=== PATIENT | female | born 1995 | race Caucasian/White ===

== ENCOUNTER 2017-12-01 07:19 | Day surgery (SDC) | payer OTHER ==
[~2017-12-01 07:19] MED LIST: ACETAMINOPHEN 1000 MG/100 ML IVPB; LIDOCAINE 2% (SDV) 5 ML INJ
[2017-12-01 08:16] LABS: ADD MAN DIFF? NO
[2017-12-01 08:23] LABS: BASOPHILS % 0.4 % (0.0-2.0); EOSINOPHILS # 0.2 10^3/ul (0.0-0.5); EOSINOPHILS % 3.4 % (0.0-7.0); HEMATOCRIT 36.5 % (37.0-47.0); HEMOGLOBIN 12.6 g/dl (12.0-16.0); LYMPHOCYTES # 2.1 10^3/ul (0.8-2.9); LYMPHOCYTES % 30.1 % (15.0-51.0); MEAN CORPUSCULAR HEMOGLOBIN 30.5 pg (29.0-33.0); MEAN CORPUSCULAR HGB CONC 34.5 g/dl (32.0-37.0); MEAN CORPUSCULAR VOLUME 88.4 fl (82.0-101.0); MEAN PLATELET VOLUME 10.9 fl (7.4-10.4); MONOCYTE # 0.5 10^3/ul (0.3-0.9); MONOCYTES % 6.5 % (0.0-11.0); NEUTROPHIL # 4.2 10^3/ul (1.6-7.5); NEUTROPHILS % 59.3 % (39.0-77.0); PLATELET COUNT 250 10^3/UL (140-415); RED BLOOD COUNT 4.13 10^6/ul (4.20-5.40); RED CELL DISTRIBUTION WIDTH 11.7 % (11.5-14.5)
[2017-12-01 08:42] LABS: ALANINE AMINOTRANSFERASE 21 IU/L (13-69); ALBUMIN/GLOBULIN RATIO 1.29; ALKALINE PHOSPHATASE 112 IU/L (42-121); ANION GAP 15 (8-16); ASPARTATE AMINO TRANSFERASE 17 IU/L (15-46); BILIRUBIN,INDIRECT 0.6 mg/dl (0-1.1); BILIRUBIN,TOTAL 0.6 mg/dl (0.2-1.3); CARBON DIOXIDE 26 mmol/L (21-31); CHLORIDE 109 mmol/L (97-110); GLUCOSE 92 mg/dl (70-220); TOTAL PROTEIN 7.1 g/dl (6.1-8.1)
[2017-12-01 08:46] LABS: BLOOD UREA NITROGEN 11 mg/dl (7-20); CALCIUM 8.6 mg/dl (8.4-10.2); CREATININE 0.62 mg/dl (0.44-1.00); POTASSIUM 3.9 mmol/L (3.5-5.1); SODIUM 146 mmol/L (135-144)
[2017-12-01 08:49] LABS: INR 1.05; PROTIME 13.8 Sec (11.9-14.9); PT RATIO 1.1
[2017-12-01] MEDS ORDERED: OXYCODONE/ACETAMINOPHEN (5/325) TAB PO ×2 (09:00)
[2017-12-01] MEDS ORDERED: HYDROmorphONE (0.2 MG/ML) 10ML SYG IV ×2 (09:00)
[2017-12-01] MEDS ORDERED: DIPHENHYDRAMINE 50 MG INJ IV (09:00)
[2017-12-01] MEDS ORDERED: METOCLOPRAMIDE 10 MG INJ IV (09:00)
[2017-12-01] MEDS ORDERED: FENTAnyl 50 MCG/ML VIAL IV ×3 (09:00)
[2017-12-01] MEDS ORDERED: hydrALAzine 20 MG INJ IV (09:00)
[2017-12-01] MEDS ORDERED: ALBUTEROL 0.083% (NEB) 2.5 MG/3 ML AMP HHN (09:00)
[2017-12-01] MEDS ORDERED: MIDAZOLAM 1 MG/ML 2 ML INJ IV (09:00)
[2017-12-01] MEDS ORDERED: KETOROLAC 30 MG INJ IV (09:00)
[2017-12-01] MEDS ORDERED: LABETALOL HCL 20MG INJ IV (09:00)
[2017-12-01] MEDS ORDERED: SUGAMMADEX SODIUM 200 MG/2 ML VIAL IV (09:10)
[2017-12-01] MEDS ORDERED: PROPOFOL 100 ML (09:11)
[2017-12-01] MEDS ORDERED: ROCURONIUM 50 MG INJ (09:14)
[2017-12-01] MEDS ORDERED: CEFAZOLIN 1 GM INJ (09:16)
[2017-12-01] MEDS ORDERED: ONDANSETRON 4 MG INJ (09:16)
[2017-12-01] MEDS ORDERED: DEXAMETHASONE 4 MG/ML 1 ML INJ (09:16)
[2017-12-01] MEDS: POLYMYXIN/BACITRACIN 1L IRRIG (09:43)
[2017-12-01] MEDS: BUPIVACAINE 0.25% (MPF) 30 ML INJ (10:11)
[2017-12-01] MEDS: ONDANSETRON 4 MG INJ IV (10:21)
[2017-12-01] MEDS: MEPERIDINE 25 MG INJ IV (10:21)
[2017-12-01] MEDS: HYDROmorphONE (0.2 MG/ML) 10ML SYG IV (10:30)
[2017-12-01] MEDS: EPHEDrine SULFATE 50 MG/5 ML SYG IV (10:38)
[2017-12-01] MEDS: HYDROCODONE/APAP (5/325) TAB PO (11:16)
== END 2017-12-01 12:10 | disposition home or self-care (01) ==
LOC: SDS 07:19
DX: K43.6 Other and unspecified ventral hernia with obstruction, without gangrene (principal); E66.9 Obesity, unspecified; Z68.29 Body mass index [BMI] 29.0-29.9, adult
CPT/HCPCS: 49653; 80053; 85025; 85610; 85730

== ENCOUNTER 2017-12-09 10:41 | Emergency (ER) | payer OTHER | END 2017-12-09 10:51 | disposition home or self-care (01) | LOC: E/R 10:51 | DX: Z48.01 Encounter for change or removal of surgical wound dressing (principal) | CPT/HCPCS: 99283; Z7502 ==